=== PATIENT | male | born 1970 | race Caucasian/White ===

== ENCOUNTER 2016-10-02 15:43 | Inpatient (IN) | payer MEDICAID, OTHER ==
[~2016-10-02] VITALS: Ht 182.9 cm; Wt 73.3 kg
[~2016-10-02 15:43] MED LIST: CREON12 PO; MIRT30 PO; OMEP20 PO; RISP1 PO; VITAD1000 PO
[2016-10-02 16:26] LABS: BASOPHILS # (AUTO) 0.09 K/uL (0.00-0.20); EOSINOPHILS # (AUTO) 0.12 K/uL (0.00-0.70); EOSINOPHILS % (AUTO) 1.37 % (1.0-6.0); HEMATOCRIT 43.4 % (41-53); HEMOGLOBIN 14.6 g/dL (13.5-17.5); LYMPHOCYTES # (AUTO) 3.4 K/uL (1.0-4.8); LYMPHOCYTES % (AUTO) 37.8 % (22.0-44.0); MEAN CORPUSCULAR HGB CONC 33.6 G/dL (31.0-37.0); MEAN CORPUSCULAR VOLUME 95 fL (80-100); MONOCYTES # (AUTO) 0.5 K/uL (0.1-1.0); MONOCYTES % (AUTO) 5.6 % (2.0-9.0); NEUTROPHILS # (AUTO) 4.9 K/uL (1.8-7.7); NEUTROPHILS % (AUTO) 54.3 % (40.0-70.0); PLATELET COUNT (AUTO) 301 K/uL (150-450); RED BLOOD CELL COUNT(AUTO) 4.55 MIL/uL (4.50-5.90); RED CELL DISTRIBUTION WIDTH 13.6 % (11.5-14.5)
[2016-10-02] MEDS ORDERED: LORazepam 2 MG TABLET PO ONE (16:30)
[2016-10-02 16:34] LABS: ANION GAP 14 mmol/L (8-16); CALCIUM, TOTAL 9.1 mg/dL (8.8-10.5); CARBON DIOXIDE 23 mmol/L (22-29); CHLORIDE 102 mmol/L (98-107); CREATININE 0.91 mg/dL (0.60-1.30); GLOMERULAR FILTR. RATE CALC > 60 mL/min (>60); POTASSIUM 3.3 mmol/L (3.5-5.1); SODIUM SERUM 139 mmol/L (136-145); UREA NITROGEN, BLOOD 11 mg/dL (7-18)
[2016-10-02 16:51] LABS: ALANINE AMINOTRANSFERASE 27 U/L (12-78); ALBUMIN 4.4 g/dL (3.4-5.0); ASPARTATE AMINOTRANSFERASE 24 U/L (15-37); BILIRUBIN,TOTAL 0.4 mg/dL (0.1-1.0); TOTAL PROTEIN, SERUM 8.5 g/dL (6.4-8.2)
[2016-10-02] MEDS ORDERED: POTASSIUM CHLORIDE 20 MEQ ER TABLET PO ONE (20:00)
[2016-10-02] MEDS ORDERED: CYANOCOBALAMIN 1,000 MCG/ML VIAL IM ONE (20:30)
[2016-10-02] MEDS ORDERED: HALOPERIDOL 5 MG TABLET PO PRN (20:30)
[2016-10-02] MEDS ORDERED: GuaiFENesin/D-METHORPHAN [SUGAR-FREE] 200-20MG/10 ML SYRUP UDCUP PO PRN (20:30)
[2016-10-02] MEDS ORDERED: HydrOXYzine PAMOATE 50 MG CAPSULE PO PRN (20:30)
[2016-10-02] MEDS ORDERED: ZOLPIDEM TARTRATE 10 MG TABLET PO PRN (20:30)
[2016-10-02] MEDS ORDERED: LOPERAMIDE HCL 2 MG CAPSULE PO PRN (20:30)
[2016-10-02 20:45] LABS: APPEARANCE,URINE CLEAR (CLEAR); GLUCOSE, URINE (UA) NEGATIVE (NEGATIVE); KETONES,URINE NEGATIVE (NEGATIVE); LEUKOCYTE ESTERASE ,URINE NEGATIVE (NEGATIVE); OCCULT BLOOD,URINE NEGATIVE (NEGATIVE); PH,URINE 5.5 (5.0-8.0); PROTEIN,URINE POS 1+ (NEGATIVE)
[2016-10-02 20:57] LABS: ADD UA MICROSCOPIC NO
[2016-10-02 21:00] VITALS: BP 125/85
[2016-10-02] MEDS: LORazepam 2 MG TABLET PO PRN (21:41)
[2016-10-02 21:45] VITALS: BP 125/85
[2016-10-02] MEDS ORDERED: PNEUMOCOCCAL VACCINE POLYVALENT 0.5 ML VIAL [PPSV23] IM ONE (21:45)
[2016-10-02] MEDS ORDERED: INFLUENZA VIRUS VACCINE QVS 2016-17 (3YR+)/PF 60 MCG/0.5 ML SYRINGE IM ONE (21:45)
[2016-10-02 22:08] VITALS: BP 130/94
[2016-10-02 23:03] VITALS: BP 131/78
[2016-10-03] VITALS (7 sets, daily range): BP systolic 111–147; BP diastolic 70–98
[2016-10-03] MEDS: LORazepam 2 MG TABLET PO PRN (04:16)
[2016-10-03] MEDS: AMYLASE/LIPASE/PROTEASE 60/12/38 MU DR CAPSULE PO SCH ×3 (07:01→16:08)
[2016-10-03] MEDS: FOLIC ACID 1 MG TABLET PO SCH (08:22)
[2016-10-03] MEDS: OMEPRAZOLE 20 MG CAPSULE PO SCH (08:22)
[2016-10-03] MEDS: LORazepam 2 MG TABLET PO SCH ×4 (08:22→20:14)
[2016-10-03] MEDS: MULTIVITAMINS WITH MINERALS, THERAPEUTIC TABLET PO SCH (08:22)
[2016-10-03] MEDS: CHOLECALCIFEROL (VIT D3) 1,000 UNITS TABLET PO SCH (08:22)
[2016-10-03] MEDS: THIAMINE HCL 100 MG TABLET PO SCH ×2 (08:22→16:07)
[2016-10-03] MEDS: NICOTINE 21 MG/24 HOUR PATCH TD SCH (08:23)
[2016-10-03] MEDS ORDERED: MIRTAZAPINE 30 MG TABLET PO SCH (21:00)
[2016-10-04] VITALS: BP 139/115
[2016-10-04] MEDS: LORazepam 2 MG TABLET PO PRN ×2 (00:12→06:34)
[2016-10-04] MEDS: AMYLASE/LIPASE/PROTEASE 60/12/38 MU DR CAPSULE PO SCH ×2 (06:35→12:04)
[2016-10-04 08:00] VITALS: BP 134/94
[2016-10-04] MEDS: FOLIC ACID 1 MG TABLET PO SCH (08:17)
[2016-10-04] MEDS: LORazepam 2 MG TABLET PO SCH ×2 (08:17→12:04)
[2016-10-04] MEDS: MULTIVITAMINS WITH MINERALS, THERAPEUTIC TABLET PO SCH (08:17)
[2016-10-04] MEDS: OMEPRAZOLE 20 MG CAPSULE PO SCH (08:17)
[2016-10-04] MEDS: THIAMINE HCL 100 MG TABLET PO SCH (08:18)
[2016-10-04] MEDS: CHOLECALCIFEROL (VIT D3) 1,000 UNITS TABLET PO SCH (08:18)
[2016-10-04] MEDS: NICOTINE 21 MG/24 HOUR PATCH TD SCH (08:18)
[2016-10-05] MEDS ORDERED: LORazepam 1 MG TABLET PO PRN (07:00)
[2016-10-05] MEDS ORDERED: LORazepam 1 MG TABLET PO SCH (09:00)
[2016-10-06] MEDS ORDERED: LORazepam 1 MG TABLET PO PRN (07:00)
== END 2016-10-04 13:50 | disposition home or self-care (01) | DRG 751 ==
LOC: EMS 15:45 → 3EI 20:45
DX: F33.2 Major depressive disorder, recurrent severe without psychotic features (principal); K86.1 Other chronic pancreatitis; R45.851 Suicidal ideations; F41.9 Anxiety disorder, unspecified; K21.9 Gastro-esophageal reflux disease without esophagitis; F17.210 Nicotine dependence, cigarettes, uncomplicated; G47.00 Insomnia, unspecified; F12.90 Cannabis use, unspecified, uncomplicated; E87.6 Hypokalemia; E55.9 Vitamin D deficiency, unspecified; F10.20 Alcohol dependence, uncomplicated; Z71.6 Tobacco abuse counseling; Z79.899 Other long term (current) drug therapy; Z98.890 Other specified postprocedural states
CPT/HCPCS: 84132; 84295; 99285; G0480; J3420

== ENCOUNTER 2016-10-31 17:54 | Inpatient (IN) | payer MEDICAID ==
[~2016-10-31] VITALS: Ht 182.9 cm; Wt 75.4 kg
[~2016-10-31 17:54] MED LIST changes: -OMEP20 PO; -RISP1 PO; -VITAD1000 PO
[2016-10-31] MEDS ORDERED: ZOLPIDEM TARTRATE 10 MG TABLET PO PRN (18:15)
[2016-10-31 18:41] VITALS: BP 108/65
[2016-10-31 19:00] VITALS: BP 138/69
[2016-10-31] MEDS: LORazepam 2 MG TABLET PO PRN (19:31)
[2016-10-31] MEDS: MIRTAZAPINE 15 MG TABLET PO SCH ×2 (19:56→21:07)
[2016-10-31 20:01] VITALS: BP 116/71
[2016-10-31] MEDS: HALOPERIDOL 5 MG TABLET PO PRN (20:36)
[2016-10-31 21:00] VITALS: BP 110/73
[2016-10-31 22:00] VITALS: BP 112/71
[2016-10-31 23:01] VITALS: BP 114/69
[2016-11-01] VITALS (7 sets, daily range): BP systolic 116–140; BP diastolic 70–89
[2016-11-01] MEDS: LORazepam 2 MG TABLET PO PRN ×3 (05:49→17:37)
[2016-11-01] MEDS: AMYLASE/LIPASE/PROTEASE 60/12/38 MU DR CAPSULE PO SCH ×3 (07:10→17:38)
[2016-11-01] MEDS ORDERED: IBUPROFEN 600 MG TABLET PO PRN (08:15)
[2016-11-01] MEDS ORDERED: PETROLATUM,WHITE 71 GM JELLY TP PRN (08:15)
[2016-11-01] MEDS ORDERED: ACETAMINOPHEN 325 MG TABLET PO PRN (08:15)
[2016-11-01] MEDS ORDERED: ALBUTEROL SULFATE HFA 90 MCG/PUFF 8 GM INHALER IH PRN (08:15)
[2016-11-01] MEDS ORDERED: BACITRACIN 28.4 GM OINTMENT TP PRN (08:15)
[2016-11-01] MEDS ORDERED: MAG HYDROX/AL HYDROX/SIMETH ES 30 ML SUSPENSION UDCUP PO PRN (08:15)
[2016-11-01] MEDS ORDERED: CloNIDine HCL 0.1 MG TABLET PO PRN (08:15)
[2016-11-01] MEDS ORDERED: BENZOCAINE/MENTHOL LOZENGE MM PRN (08:15)
[2016-11-01] MEDS ORDERED: ONDANSETRON HCL 4 MG TABLET PO PRN (08:15)
[2016-11-01] MEDS ORDERED: MAGNESIUM HYDROXIDE SUSPENSION 30 ML UDCUP PO PRN (08:15)
[2016-11-01] MEDS ORDERED: LOPERAMIDE HCL 2 MG CAPSULE PO PRN (08:15)
[2016-11-01] MEDS: NICOTINE 21 MG/24 HOUR PATCH TD SCH (09:09)
[2016-11-01] MEDS: CHOLECALCIFEROL (VIT D3) 1,000 UNITS TABLET PO SCH (09:09)
[2016-11-01] MEDS: OMEPRAZOLE 20 MG CAPSULE PO SCH (09:09)
[2016-11-01 09:38] LABS: BASOPHILS % (AUTO) 0.7 % (0.0-2.0); HEMATOCRIT 40.8 % (41-53); HEMOGLOBIN 13.3 g/dL (13.5-17.5); LYMPHOCYTES # (AUTO) 2.6 K/uL (1.0-4.8); LYMPHOCYTES % (AUTO) 43.4 % (22.0-44.0); MEAN CORPUSCULAR HEMOGLOBIN 31.7 pg (26.0-34.0); MEAN CORPUSCULAR HGB CONC 32.7 G/dL (31.0-37.0); MEAN CORPUSCULAR VOLUME 97 fL (80-100); MONOCYTES # (AUTO) 0.4 K/uL (0.1-1.0); MONOCYTES % (AUTO) 6.7 % (2.0-9.0); NEUTROPHILS # (AUTO) 2.9 K/uL (1.8-7.7); NEUTROPHILS % (AUTO) 47.2 % (40.0-70.0); PLATELET COUNT (AUTO) 207 K/uL (150-450); RED BLOOD CELL COUNT(AUTO) 4.21 MIL/uL (4.50-5.90); RED CELL DISTRIBUTION WIDTH 13.4 % (11.5-14.5); WHITE BLOOD COUNT (AUTO) 6.1 K/uL (4.5-11.0)
[2016-11-01 10:14] LABS: HEMOGLOBIN A1C 7.5 % (4.5-6.2)
[2016-11-01] MEDS ORDERED: GLUCAGON,HUMAN RECOMBINANT 1 MG VIAL IM PRN (11:00)
[2016-11-01 11:27] LABS: GLUCOSE,POINT OF CARE 225 MG/DL (70-110)
[2016-11-01 11:27] LABS: GLUCOSE,POINT OF CARE 216 MG/DL (70-110)
[2016-11-01] MEDS: INSULIN ASPART 100 UNITS/ML SQ PRN ×2 (11:29→17:04)
[2016-11-01 12:24] LABS: ALANINE AMINOTRANSFERASE 20 U/L (12-78); ALBUMIN 3.6 g/dL (3.4-5.0); ANION GAP 12 mmol/L (8-16); ASPARTATE AMINOTRANSFERASE 17 U/L (15-37); BILIRUBIN,TOTAL 0.3 mg/dL (0.1-1.0); CALCIUM, TOTAL 8.4 mg/dL (8.8-10.5); CARBON DIOXIDE 25 mmol/L (22-29); CHLORIDE 106 mmol/L (98-107); CHOL/HDL RATIO 2.2 (4.2-7.3); CREATININE 0.87 mg/dL (0.60-1.30); GLOMERULAR FILTR. RATE CALC > 60 mL/min (>60); POTASSIUM 4.1 mmol/L (3.5-5.1); SODIUM SERUM 143 mmol/L (136-145); THYROID STIMULATING HORMONE 1.89 uIU/mL (0.36-3.74); TOTAL PROTEIN, SERUM 6.7 g/dL (6.4-8.2); UREA NITROGEN, BLOOD 12 mg/dL (7-18)
[2016-11-01] MEDS: HALOPERIDOL 5 MG TABLET PO PRN ×2 (13:36→17:37)
[2016-11-01 17:02] LABS: GLUCOSE COMMENT 1 Received Meds; GLUCOSE,POINT OF CARE 185 MG/DL (70-110)
[2016-11-01 21:21] LABS: GLUCOSE COMMENT 1 Received Meds; GLUCOSE,POINT OF CARE 167 MG/DL (70-110)
[2016-11-01] MEDS: MIRTAZAPINE 15 MG TABLET PO SCH (21:23)
[2016-11-02 05:55] VITALS: BP 118/78
[2016-11-02] MEDS: LORazepam 2 MG TABLET PO PRN (05:58)
[2016-11-02] MEDS: HALOPERIDOL 5 MG TABLET PO PRN (05:58)
[2016-11-02 06:02] LABS: GLUCOSE,POINT OF CARE 180 MG/DL (70-110)
[2016-11-02] MEDS: AMYLASE/LIPASE/PROTEASE 60/12/38 MU DR CAPSULE PO SCH ×2 (06:41→11:10)
[2016-11-02] MEDS: INSULIN ASPART 100 UNITS/ML SQ PRN ×2 (06:50→11:19)
[2016-11-02] MEDS: OMEPRAZOLE 20 MG CAPSULE PO SCH (08:09)
[2016-11-02] MEDS: CHOLECALCIFEROL (VIT D3) 1,000 UNITS TABLET PO SCH (08:09)
[2016-11-02] MEDS: NICOTINE 21 MG/24 HOUR PATCH TD SCH (08:10)
[2016-11-02 08:33] VITALS: BP 117/73
[2016-11-02] MEDS ORDERED: OMEP20 PO (10:08)
[2016-11-02] MEDS ORDERED: VITAD1000 PO (10:08)
[2016-11-02 11:38] LABS: GLUCOSE,POINT OF CARE 250 MG/DL (70-110)
== END 2016-11-02 13:20 | disposition home or self-care (01) | DRG 751 ==
LOC: EDSTATUS 18:29 → B3A 18:48
DX: F33.2 Major depressive disorder, recurrent severe without psychotic features (principal); K86.1 Other chronic pancreatitis; R45.851 Suicidal ideations; E55.9 Vitamin D deficiency, unspecified; F12.90 Cannabis use, unspecified, uncomplicated; K21.9 Gastro-esophageal reflux disease without esophagitis; G47.00 Insomnia, unspecified; F10.129 Alcohol abuse with intoxication, unspecified; J44.9 Chronic obstructive pulmonary disease, unspecified; F17.200 Nicotine dependence, unspecified, uncomplicated; Z71.6 Tobacco abuse counseling
CPT/HCPCS: 82962; 83036; 84439; 84443; 87081

== ENCOUNTER 2016-11-03 14:51 | Inpatient (IN) | payer MEDICAID ==
[~2016-11-03] VITALS: Ht 182.9 cm; Wt 73.4 kg
[~2016-11-03 14:51] MED LIST changes: +OMEP20 PO; +VITAD1000 PO
[2016-11-03 18:35] VITALS: BP 121/72
[2016-11-03] MEDS: HALOPERIDOL 5 MG TABLET PO PRN (18:36)
[2016-11-03] MEDS: LORazepam 2 MG TABLET PO PRN (18:36)
[2016-11-03] MEDS: ZOLPIDEM TARTRATE 10 MG TABLET PO PRN (20:32)
[2016-11-03] MEDS: MIRTAZAPINE 15 MG TABLET PO SCH (20:32)
[2016-11-04] MEDS: AMYLASE/LIPASE/PROTEASE 60/12/38 MU DR CAPSULE PO SCH ×3 (06:33→16:06)
[2016-11-04] MEDS: OMEPRAZOLE 20 MG CAPSULE PO SCH (06:33)
[2016-11-04 06:46] VITALS: BP 121/62
[2016-11-04] MEDS: HALOPERIDOL 5 MG TABLET PO PRN ×2 (07:19→16:06)
[2016-11-04] MEDS: LORazepam 2 MG TABLET PO PRN ×3 (07:19→16:06)
[2016-11-04 08:11] VITALS: BP 108/78
[2016-11-04] MEDS: CHOLECALCIFEROL (VIT D3) 1,000 UNITS TABLET PO SCH (09:17)
[2016-11-04] MEDS: NICOTINE 21 MG/24 HOUR PATCH TD SCH (09:17)
[2016-11-04] MEDS ORDERED: PETROLATUM,WHITE 71 GM JELLY TP PRN (11:30)
[2016-11-04] MEDS ORDERED: BENZOCAINE/MENTHOL LOZENGE MM PRN (11:30)
[2016-11-04] MEDS ORDERED: ALBUTEROL SULFATE HFA 90 MCG/PUFF 8 GM INHALER IH PRN (11:30)
[2016-11-04] MEDS ORDERED: MAGNESIUM HYDROXIDE SUSPENSION 30 ML UDCUP PO PRN (11:30)
[2016-11-04] MEDS ORDERED: BACITRACIN 28.4 GM OINTMENT TP PRN (11:30)
[2016-11-04] MEDS ORDERED: CloNIDine HCL 0.1 MG TABLET PO PRN (11:30)
[2016-11-04] MEDS ORDERED: LOPERAMIDE HCL 2 MG CAPSULE PO PRN (11:30)
[2016-11-04] MEDS ORDERED: IBUPROFEN 600 MG TABLET PO PRN (11:30)
[2016-11-04] MEDS ORDERED: ACETAMINOPHEN 325 MG TABLET PO PRN (11:30)
[2016-11-04] MEDS ORDERED: MAG HYDROX/AL HYDROX/SIMETH ES 30 ML SUSPENSION UDCUP PO PRN (11:30)
[2016-11-04] MEDS ORDERED: ONDANSETRON HCL 4 MG TABLET PO PRN (11:30)
[2016-11-04 16:01] VITALS: BP 115/77
[2016-11-04] MEDS: MIRTAZAPINE 15 MG TABLET PO SCH (20:38)
[2016-11-05 03:30] VITALS: BP 122/75
[2016-11-05] MEDS: LORazepam 2 MG TABLET PO PRN ×3 (03:36→16:05)
[2016-11-05] MEDS: HALOPERIDOL 5 MG TABLET PO PRN ×4 (03:36→20:38)
[2016-11-05] MEDS: AMYLASE/LIPASE/PROTEASE 60/12/38 MU DR CAPSULE PO SCH ×3 (07:13→16:05)
[2016-11-05] MEDS: OMEPRAZOLE 20 MG CAPSULE PO SCH (07:13)
[2016-11-05] MEDS: CHOLECALCIFEROL (VIT D3) 1,000 UNITS TABLET PO SCH (08:17)
[2016-11-05] MEDS: NICOTINE 21 MG/24 HOUR PATCH TD SCH (08:18)
[2016-11-05] MEDS: DISULFIRAM 250 MG TABLET PO SCH (08:18)
[2016-11-05 08:22] VITALS: BP 112/67
[2016-11-05 16:00] VITALS: BP 132/81
[2016-11-05] MEDS: MIRTAZAPINE 15 MG TABLET PO SCH (20:38)
[2016-11-05] MEDS: ZOLPIDEM TARTRATE 10 MG TABLET PO PRN (20:38)
[2016-11-06 05:34] VITALS: BP 123/64
[2016-11-06] MEDS: OMEPRAZOLE 20 MG CAPSULE PO SCH (06:26)
[2016-11-06] MEDS: HALOPERIDOL 5 MG TABLET PO PRN (06:36)
[2016-11-06] MEDS: LORazepam 2 MG TABLET PO PRN (06:36)
[2016-11-06] MEDS: AMYLASE/LIPASE/PROTEASE 60/12/38 MU DR CAPSULE PO SCH ×2 (06:46→13:02)
[2016-11-06] MEDS: DISULFIRAM 250 MG TABLET PO SCH (08:18)
[2016-11-06] MEDS: CHOLECALCIFEROL (VIT D3) 1,000 UNITS TABLET PO SCH (08:18)
[2016-11-06] MEDS: NICOTINE 21 MG/24 HOUR PATCH TD SCH (08:21)
[2016-11-06 08:30] VITALS: BP 113/77
[2016-11-06] MEDS ORDERED: DISU250 PO (09:14)
== END 2016-11-06 13:18 | disposition home or self-care (01) | DRG 754 ==
LOC: B3A 17:50 → EDSTATUS 17:52
DX: F32.9 Major depressive disorder, single episode, unspecified (principal); K86.1 Other chronic pancreatitis; R45.851 Suicidal ideations; E55.9 Vitamin D deficiency, unspecified; F10.20 Alcohol dependence, uncomplicated; G47.00 Insomnia, unspecified; F12.90 Cannabis use, unspecified, uncomplicated; F17.210 Nicotine dependence, cigarettes, uncomplicated; K21.9 Gastro-esophageal reflux disease without esophagitis; Z91.5 Personal history of self-harm; Z71.6 Tobacco abuse counseling; Z79.899 Other long term (current) drug therapy; Z71.41 Alcohol abuse counseling and surveillance of alcoholic; Z98.890 Other specified postprocedural states
CPT/HCPCS: 87081

== ENCOUNTER 2017-07-03 11:04 | Inpatient (IN) | payer MEDICAID ==
[~2017-07-03] VITALS: Ht 182.9 cm; Wt 66.1 kg
[2017-07-03] VITALS (8 sets, daily range): BP systolic 114–132; BP diastolic 74–86
[~2017-07-03 11:04] MED LIST changes: +ACAM333T7 PO; -CREON12 PO; +HALO10 PO; +MIRT15 PO; -MIRT30 PO; +NALT50TA PO; -OMEP20 PO; -VITAD1000 PO
[2017-07-03] MEDS ORDERED: GABA-533 PO (11:40)
[2017-07-03] MEDS ORDERED: ZOLPIDEM TARTRATE 10 MG TABLET PO PRN (11:45)
[2017-07-03] MEDS ORDERED: HydrOXYzine PAMOATE 50 MG CAPSULE PO PRN (12:30)
[2017-07-03] MEDS ORDERED: PNEUMOCOCCAL VACCINE POLYVALENT 0.5 ML VIAL [PPSV23] IM ONE (12:30)
[2017-07-03] MEDS ORDERED: GuaiFENesin/D-METHORPHAN [SUGAR-FREE] 200-20MG/10 ML SYRUP UDCUP PO PRN (12:30)
[2017-07-03] MEDS ORDERED: LORazepam 2 MG TABLET PO PRN (12:30)
[2017-07-03] MEDS ORDERED: LOPERAMIDE HCL 2 MG CAPSULE PO PRN (12:30)
[2017-07-03] MEDS ORDERED: CYANOCOBALAMIN 1,000 MCG/ML VIAL IM ONE (12:30)
[2017-07-03] MEDS ORDERED: INFLUENZA VIRUS VACCINE QVS 2017-18 (3YR+)/PF 60 MCG/0.5 ML SYRINGE IM ONE (12:30)
[2017-07-03] MEDS: HALOPERIDOL 5 MG TABLET PO PRN ×2 (12:57→17:01)
[2017-07-03] MEDS: MULTIVITAMINS WITH MINERALS, THERAPEUTIC TABLET PO SCH (12:57)
[2017-07-03] MEDS: FOLIC ACID 1 MG TABLET PO SCH (12:58)
[2017-07-03] MEDS: LORazepam 2 MG TABLET PO PRN ×2 (12:58→17:02)
[2017-07-03] MEDS: THIAMINE HCL 100 MG TABLET PO SCH (16:20)
[2017-07-03] MEDS: GABAPENTIN 400 MG CAPSULE PO SCH (16:21)
[2017-07-03] MEDS: MIRTAZAPINE 15 MG TABLET PO SCH (20:06)
[2017-07-04 00:30] VITALS: BP 120/77
[2017-07-04 04:30] VITALS: BP 106/62
[2017-07-04] MEDS ORDERED: LORazepam 2 MG TABLET PO PRN (07:00)
[2017-07-04] MEDS: NICOTINE 21 MG/24 HOUR PATCH TD SCH (07:57)
[2017-07-04] MEDS: FOLIC ACID 1 MG TABLET PO SCH (07:57)
[2017-07-04] MEDS: LORazepam 2 MG TABLET PO SCH ×4 (07:57→20:59)
[2017-07-04] MEDS: THIAMINE HCL 100 MG TABLET PO SCH ×2 (07:57→16:08)
[2017-07-04] MEDS: CHOLECALCIFEROL (VIT D3) 1,000 UNITS TABLET PO SCH (07:57)
[2017-07-04] MEDS: MULTIVITAMINS WITH MINERALS, THERAPEUTIC TABLET PO SCH (07:57)
[2017-07-04] MEDS: GABAPENTIN 400 MG CAPSULE PO SCH ×2 (07:58→16:08)
[2017-07-04 08:00] VITALS: BP 109/80
[2017-07-04 08:12] VITALS: BP 109/80
[2017-07-04 08:21] LABS: BASOPHILS % (AUTO) 0.5 % (0.0-2.0); EOSINOPHILS % (AUTO) 2.3 % (1.0-6.0); HEMATOCRIT 45.9 % (41-53); HEMOGLOBIN 15.8 g/dL (13.5-17.5); LYMPHOCYTES # (AUTO) 3.1 K/uL (1.0-4.8); LYMPHOCYTES % (AUTO) 36.6 % (22.0-44.0); MEAN CORPUSCULAR HGB CONC 34.4 G/dL (31.0-37.0); MEAN CORPUSCULAR VOLUME 99 fL (80-100); MONOCYTES # (AUTO) 0.6 K/uL (0.1-1.0); MONOCYTES % (AUTO) 7.4 % (2.0-9.0); NEUTROPHILS # (AUTO) 4.5 K/uL (1.8-7.7); NEUTROPHILS % (AUTO) 53.2 % (40.0-70.0); PLATELET COUNT (AUTO) 246 K/uL (150-450); RED BLOOD CELL COUNT(AUTO) 4.65 MIL/uL (4.50-5.90); RED CELL DISTRIBUTION WIDTH 13.5 % (11.5-14.5); WHITE BLOOD COUNT (AUTO) 8.4 K/uL (4.5-11.0)
[2017-07-04 08:53] LABS: ALANINE AMINOTRANSFERASE 26 U/L (12-78); ALBUMIN 3.7 g/dL (3.4-5.0); ANION GAP 9 mmol/L (8-16); ASPARTATE AMINOTRANSFERASE 15 U/L (15-37); BILIRUBIN,TOTAL 0.7 mg/dL (0.1-1.0); CALCIUM, TOTAL 9.3 mg/dL (8.8-10.5); CARBON DIOXIDE 27 mmol/L (22-29); CHLORIDE 97 mmol/L (98-107); CHOL/HDL RATIO 1.7 (4.2-7.3); CREATININE 0.83 mg/dL (0.60-1.30); GLOMERULAR FILTR. RATE CALC > 60 mL/min (>60); SODIUM SERUM 133 mmol/L (136-145); THYROID STIMULATING HORMONE 1.82 uIU/mL (0.36-3.74); TOTAL PROTEIN, SERUM 7.5 g/dL (6.4-8.2); UREA NITROGEN, BLOOD 12 mg/dL (7-18)
[2017-07-04] MEDS: AMYLASE/LIPASE/PROTEASE 60/12/38 MU DR CAPSULE PO SCH ×2 (11:30→17:00)
[2017-07-04] MEDS: HALOPERIDOL 5 MG TABLET PO PRN (14:36)
[2017-07-04 14:38] VITALS: BP 110/88
[2017-07-04 16:00] VITALS: BP 107/66
[2017-07-04] MEDS: MIRTAZAPINE 15 MG TABLET PO SCH (20:12)
[2017-07-05 00:42] VITALS: BP 101/70
[2017-07-05 05:40] VITALS: BP 111/89
[2017-07-05] MEDS: AMYLASE/LIPASE/PROTEASE 60/12/38 MU DR CAPSULE PO SCH ×2 (06:04→11:24)
[2017-07-05 08:04] VITALS: BP 115/70
[2017-07-05] MEDS: THIAMINE HCL 100 MG TABLET PO SCH (08:09)
[2017-07-05] MEDS: GABAPENTIN 400 MG CAPSULE PO SCH (08:09)
[2017-07-05] MEDS: MULTIVITAMINS WITH MINERALS, THERAPEUTIC TABLET PO SCH (08:09)
[2017-07-05] MEDS: NICOTINE 21 MG/24 HOUR PATCH TD SCH (08:10)
[2017-07-05] MEDS: FOLIC ACID 1 MG TABLET PO SCH (08:10)
[2017-07-05] MEDS: LORazepam 2 MG TABLET PO SCH ×2 (08:10→13:00)
[2017-07-05] MEDS: CHOLECALCIFEROL (VIT D3) 1,000 UNITS TABLET PO SCH (08:12)
[2017-07-05] MEDS ORDERED: GLUCAGON,HUMAN RECOMBINANT 1 MG VIAL IM PRN (09:00)
[2017-07-05] MEDS ORDERED: INSULIN ASPART 100 UNITS/ML SQ PRN (09:00)
[2017-07-05] MEDS: HALOPERIDOL 5 MG TABLET PO PRN (09:19)
[2017-07-05] MEDS ORDERED: AMYL1CAP62 PO (10:55)
[2017-07-05 11:50] VITALS: BP 115/70
[2017-07-06] MEDS ORDERED: LORazepam 1 MG TABLET PO PRN (07:00)
[2017-07-06] MEDS ORDERED: LORazepam 1 MG TABLET PO SCH (09:00)
[2017-07-07] MEDS ORDERED: LORazepam 1 MG TABLET PO PRN (07:00)
== END 2017-07-05 13:30 | disposition home or self-care (01) | DRG 751 ==
LOC: EDSTATUS 11:41 → B2S 12:00
DX: F33.2 Major depressive disorder, recurrent severe without psychotic features (principal); R45.851 Suicidal ideations; K86.0 Alcohol-induced chronic pancreatitis; F25.9 Schizoaffective disorder, unspecified; E55.9 Vitamin D deficiency, unspecified; K21.9 Gastro-esophageal reflux disease without esophagitis; J44.9 Chronic obstructive pulmonary disease, unspecified; F12.90 Cannabis use, unspecified, uncomplicated; F17.200 Nicotine dependence, unspecified, uncomplicated; G47.00 Insomnia, unspecified; K59.00 Constipation, unspecified; F10.239 Alcohol dependence with withdrawal, unspecified; Z91.5 Personal history of self-harm; Z79.899 Other long term (current) drug therapy; Z71.51 Drug abuse counseling and surveillance of drug abuser; Z56.0 Unemployment, unspecified; Z59.0 Homelessness; Z71.6 Tobacco abuse counseling; Z71.41 Alcohol abuse counseling and surveillance of alcoholic; Z28.21 Immunization not carried out because of patient refusal
CPT/HCPCS: 84439; 84443; J3420

== ENCOUNTER 2018-01-18 15:28 | Inpatient (IN) | payer MEDICAID, OTHER ==
[~2018-01-18] VITALS: Ht 182.9 cm; Wt 74.6 kg
[~2018-01-18 15:28] MED LIST changes: -ACAM333T7 PO; +AMYL1CAP62 PO; +GABA-533 PO; -HALO10 PO; -NALT50TA PO
[2018-01-18] MEDS ORDERED: METF500T6 PO (16:31)
[2018-01-18] MEDS ORDERED: INSREG SQ (16:31)
[2018-01-18 16:33] LABS: GLUCOSE,POINT OF CARE 84 MG/DL (70-110)
[2018-01-18] MEDS ORDERED: DEXTROSE 50%-WATER 25 GM/50 ML SYRINGE IVP ONE (17:30)
[2018-01-18 17:49] LABS: BASOPHILS % (AUTO) 0.5 % (0.0-2.0); EOSINOPHILS % (AUTO) 0.2 % (1.0-6.0); HEMATOCRIT 45.3 % (41-53); HEMOGLOBIN 15.2 g/dL (13.5-17.5); LYMPHOCYTES # (AUTO) 2.2 K/uL (1.0-4.8); LYMPHOCYTES % (AUTO) 8.3 % (22.0-44.0); MEAN CORPUSCULAR HEMOGLOBIN 31.8 pg (26.0-34.0); MEAN CORPUSCULAR HGB CONC 33.6 G/dL (31.0-37.0); MEAN CORPUSCULAR VOLUME 95 fL (80-100); MONOCYTES # (AUTO) 0.7 K/uL (0.1-1.0); MONOCYTES % (AUTO) 2.6 % (2.0-9.0); NEUTROPHILS # (AUTO) 23.1 K/uL (1.8-7.7); NEUTROPHILS % (AUTO) 88.4 % (40.0-70.0); PLATELET COUNT (AUTO) 275 K/uL (150-450); RED BLOOD CELL COUNT(AUTO) 4.79 MIL/uL (4.50-5.90)
[2018-01-18 18:13] LABS: ANION GAP 15 mmol/L (8-16); CALCIUM, TOTAL 8.7 mg/dL (8.8-10.5); CARBON DIOXIDE 21 mmol/L (22-29); CHLORIDE 105 mmol/L (98-107); CREATININE 0.45 mg/dL (0.60-1.30); GLOMERULAR FILTR. RATE CALC > 60 mL/min (>60); GLUCOSE,RANDOM 53 mg/dL (70-110); POTASSIUM 4.1 mmol/L (3.5-5.1); SODIUM SERUM 141 mmol/L (136-145); UREA NITROGEN, BLOOD 12 mg/dL (7-18)
[2018-01-18 18:20] LABS: ALANINE AMINOTRANSFERASE 20 U/L (12-78); ALBUMIN 4.2 g/dL (3.4-5.0); ALKALINE PHOSPHATASE 58 U/L (46-116); ASPARTATE AMINOTRANSFERASE 19 U/L (15-37); BILIRUBIN,TOTAL 0.2 mg/dL (0.1-1.0); TOTAL PROTEIN, SERUM 8.4 g/dL (6.4-8.2)
[2018-01-18 18:35] LABS: PLATELET MORPHOLOGY COMMENT NORMAL
[2018-01-18 18:59] LABS: GLUCOSE,POINT OF CARE 204 MG/DL (70-110)
[2018-01-18] MEDS ORDERED: ONDANSETRON HCL 4 MG/2 ML VIAL IVP PRN ×2 (19:30→20:45)
[2018-01-18] MEDS ORDERED: ACETAMINOPHEN 325 MG TABLET PO PRN ×2 (19:30→20:45)
[2018-01-18 19:53] LABS: GLUCOSE,POINT OF CARE 219 MG/DL (70-110)
[2018-01-18] MEDS ORDERED: IPRATROPIUM BROMIDE 0.5 MG/2.5 ML NEB SOLUTION NEB PRN (20:45)
[2018-01-18] MEDS ORDERED: TraMADol HCL 50 MG TABLET PO PRN (20:45)
[2018-01-18] MEDS ORDERED: ZOLPIDEM TARTRATE 5 MG TABLET PO PRN (20:45)
[2018-01-18] MEDS ORDERED: MAGNESIUM HYDROXIDE SUSPENSION 30 ML UDCUP PO PRN (20:45)
[2018-01-18] MEDS ORDERED: DEXTROSE 50%-WATER 25 GM/50 ML SYRINGE IVP PRN (20:45)
[2018-01-18] MEDS ORDERED: ALBUTEROL SULFATE 2.5 MG/0.5 ML NEB SOLUTION NEB PRN (20:45)
[2018-01-18] MEDS ORDERED: BISACODYL 10 MG RECTAL RECTAL SUPPOSITORY PR PRN (20:45)
[2018-01-18 20:55] VITALS: BP 120/71
[2018-01-18 20:58] LABS: GLUCOMETER DEV NAME(LOC) 6N 1E; GLUCOSE,POINT OF CARE 250 MG/DL (70-110)
[2018-01-18] MEDS: GABAPENTIN 400 MG CAPSULE PO SCH (22:48)
[2018-01-18] MEDS: MIRTAZAPINE 15 MG TABLET PO SCH (22:48)
[2018-01-18] MEDS: AMYLASE/LIPASE/PROTEASE 60/12/38 MU DR CAPSULE PO SCH (22:49)
[2018-01-19] VITALS (7 sets, daily range): BP systolic 106–129; BP diastolic 66–84
[2018-01-19 00:34] LABS: GLUCOMETER DEV NAME(LOC) 6N 1E; GLUCOSE,POINT OF CARE 263 MG/DL (70-110)
[2018-01-19 00:49] LABS: APPEARANCE,URINE CLEAR (CLEAR); BILIRUBIN,URINE NEGATIVE (NEGATIVE); GLUCOSE, URINE (UA) >=1000 mg/dL (NEGATIVE); KETONES,URINE TRACE mg/dL (NEGATIVE); LEUKOCYTE ESTERASE ,URINE NEGATIVE (NEGATIVE); NITRATE,URINE NEGATIVE (NEGATIVE); OCCULT BLOOD,URINE NEGATIVE (NEGATIVE); PH,URINE 5.5 (5.0-8.0); PROTEIN,URINE NEGATIVE (NEGATIVE); UROBILINOGEN,URINE 0.2 mg/dL (<=1.0)
[2018-01-19 01:07] LABS: BACTERIA,URINE None Seen /HPF (None Seen); RBC,URINE None Seen /HPF (0-2); WBC,URINE None Seen /HPF (0-5)
[2018-01-19 05:39] LABS: GLUCOMETER DEV NAME(LOC) 6N 2D; GLUCOSE,POINT OF CARE 240 MG/DL (70-110)
[2018-01-19 06:47] LABS: BASOPHILS % (AUTO) 0.6 % (0.0-2.0); EOSINOPHILS % (AUTO) 2.7 % (1.0-6.0); HEMATOCRIT 43.4 % (41-53); HEMOGLOBIN 15.1 g/dL (13.5-17.5); LYMPHOCYTES # (AUTO) 3.1 K/uL (1.0-4.8); LYMPHOCYTES % (AUTO) 37.2 % (22.0-44.0); MEAN CORPUSCULAR HEMOGLOBIN 32.9 pg (26.0-34.0); MEAN CORPUSCULAR HGB CONC 34.7 G/dL (31.0-37.0); MEAN CORPUSCULAR VOLUME 95 fL (80-100); MONOCYTES # (AUTO) 0.6 K/uL (0.1-1.0); MONOCYTES % (AUTO) 7.7 % (2.0-9.0); NEUTROPHILS # (AUTO) 4.3 K/uL (1.8-7.7); NEUTROPHILS % (AUTO) 51.8 % (40.0-70.0); PLATELET COUNT (AUTO) 266 K/uL (150-450); RED BLOOD CELL COUNT(AUTO) 4.59 MIL/uL (4.50-5.90); RED CELL DISTRIBUTION WIDTH 14.1 % (11.5-14.5)
[2018-01-19 07:00] LABS: ALANINE AMINOTRANSFERASE 23 U/L (12-78); ALBUMIN 3.7 g/dL (3.4-5.0); ALKALINE PHOSPHATASE 55 U/L (46-116); AMYLASE 40 U/L (25-115); ANION GAP 10 mmol/L (8-16); ASPARTATE AMINOTRANSFERASE 18 U/L (15-37); BILIRUBIN,TOTAL 0.4 mg/dL (0.1-1.0); CALCIUM, TOTAL 8.3 mg/dL (8.8-10.5); CARBON DIOXIDE 25 mmol/L (22-29); CHLORIDE 104 mmol/L (98-107); GLOMERULAR FILTR. RATE CALC > 60 mL/min (>60); GLUCOSE,RANDOM 217 mg/dL (70-110); LIPASE 108 U/L (73-393); PHOSPHORUS 2.4 mg/dL (2.5-4.9); POTASSIUM 4.6 mmol/L (3.5-5.1); SODIUM SERUM 139 mmol/L (136-145); TOTAL PROTEIN, SERUM 7.6 g/dL (6.4-8.2); UREA NITROGEN, BLOOD 11 mg/dL (7-18)
[2018-01-19 07:10] LABS: HEMOGLOBIN A1C 7.3 % (4.5-6.2)
[2018-01-19] MEDS: PANTOPRAZOLE SODIUM 40 MG DR TABLET PO SCH (08:42)
[2018-01-19] MEDS: GABAPENTIN 400 MG CAPSULE PO SCH ×2 (08:42→20:52)
[2018-01-19] MEDS: AMYLASE/LIPASE/PROTEASE 60/12/38 MU DR CAPSULE PO SCH ×3 (08:42→20:52)
[2018-01-19 12:13] LABS: GLUCOMETER DEV NAME(LOC) 6N 2D; GLUCOSE,POINT OF CARE 250 MG/DL (70-110)
[2018-01-19 12:18] LABS: GLUCOMETER DEV NAME(LOC) 6N 1E; GLUCOSE,POINT OF CARE 214 MG/DL (70-110)
[2018-01-19] MEDS: INSULIN LISPRO 100 UNITS/ML SQ PRN ×3 (12:34→20:53)
[2018-01-19 17:43] LABS: GLUCOMETER DEV NAME(LOC) 6N 1E; GLUCOSE,POINT OF CARE 215 MG/DL (70-110)
[2018-01-19] MEDS: MIRTAZAPINE 15 MG TABLET PO SCH (20:52)
[2018-01-19] MEDS: LACTULOSE 20 GM/30 ML SOLUTION UDCUP PO SCH (23:49)
[2018-01-20 05:35] VITALS: BP 106/64
[2018-01-20] MEDS: INSULIN LISPRO 100 UNITS/ML SQ PRN ×2 (06:23→12:35)
[2018-01-20 06:34] LABS: GLUCOMETER DEV NAME(LOC) 6N 1E; GLUCOSE,POINT OF CARE 240 MG/DL (70-110)
[2018-01-20 06:34] LABS: GLUCOMETER DEV NAME(LOC) 6N 1E; GLUCOSE,POINT OF CARE 224 MG/DL (70-110)
[2018-01-20 07:36] VITALS: BP 110/66
[2018-01-20] MEDS: LACTULOSE 20 GM/30 ML SOLUTION UDCUP PO SCH (08:00)
[2018-01-20] MEDS: PANTOPRAZOLE SODIUM 40 MG DR TABLET PO SCH (08:18)
[2018-01-20] MEDS: GABAPENTIN 400 MG CAPSULE PO SCH (08:18)
[2018-01-20] MEDS: AMYLASE/LIPASE/PROTEASE 60/12/38 MU DR CAPSULE PO SCH (08:18)
[2018-01-20] MEDS ORDERED: NICOTINE 21 MG/24 HOUR PATCH TD SCH (09:00)
[2018-01-20 09:33] LABS: B-TYPE NATRIURETIC PEPTIDE 10 pg/mL (0-100)
[2018-01-20 10:34] LABS: ANION GAP 9 mmol/L (8-16); CALCIUM, TOTAL 8.6 mg/dL (8.8-10.5); CARBON DIOXIDE 27 mmol/L (22-29); CHLORIDE 103 mmol/L (98-107); CREATININE 0.94 mg/dL (0.60-1.30); GLOMERULAR FILTR. RATE CALC > 60 mL/min (>60); GLUCOSE,RANDOM 238 mg/dL (70-110); POTASSIUM 4.4 mmol/L (3.5-5.1); SODIUM SERUM 139 mmol/L (136-145); UREA NITROGEN, BLOOD 11 mg/dL (7-18)
[2018-01-20 10:58] LABS: ANION GAP 10 mmol/L (8-16); CALCIUM, TOTAL 8.6 mg/dL (8.8-10.5); CARBON DIOXIDE 25 mmol/L (22-29); CHLORIDE 103 mmol/L (98-107); CREATININE 0.94 mg/dL (0.60-1.30); GLOMERULAR FILTR. RATE CALC > 60 mL/min (>60); GLUCOSE,RANDOM 240 mg/dL (70-110); POTASSIUM 4.3 mmol/L (3.5-5.1); SODIUM SERUM 138 mmol/L (136-145); UREA NITROGEN, BLOOD 10 mg/dL (7-18)
[2018-01-20 11:50] VITALS: BP 119/78
[2018-01-20 19:53] LABS: GLUCOMETER DEV NAME(LOC) 6N 1E; GLUCOSE,POINT OF CARE 248 MG/DL (70-110)
== END 2018-01-20 14:20 | disposition home or self-care (01) | DRG 420 ==
LOC: EMS 15:30 → 6N 20:00
PROVIDERS: ADMIT Internal Medicine; ATTEND Internal Medicine
DX: E11.649 Type 2 diabetes mellitus with hypoglycemia without coma (principal); R45.851 Suicidal ideations; K86.1 Other chronic pancreatitis; E87.1 Hypo-osmolality and hyponatremia; J44.9 Chronic obstructive pulmonary disease, unspecified; F10.10 Alcohol abuse, uncomplicated; F25.9 Schizoaffective disorder, unspecified; K21.9 Gastro-esophageal reflux disease without esophagitis; E55.9 Vitamin D deficiency, unspecified; F17.200 Nicotine dependence, unspecified, uncomplicated; D72.829 Elevated white blood cell count, unspecified; Z71.6 Tobacco abuse counseling; Z91.5 Personal history of self-harm
CPT/HCPCS: 82948; 83036; 83735; 84100; 87081; 96374; 99285; G0480